=== PATIENT | male | born 1945 | race Caucasian/White ===

== ENCOUNTER 2017-08-26 21:07 | Inpatient (IN) | payer OTHER ==
[~2017-08-26] VITALS: Ht 175.3 cm; Wt 84.2 kg
[~2017-08-26 21:07] MED LIST: ALLOPURINOL100 MG PO; AMLODIPINE BESY10 MG PO; AUGMENTIN875 MG PO; BALSALAZIDE DI750 MG PO; BYSTOLIC5 MG PO; CORDARONE200 MG PO; CRESTOR5 MG PO; ELIQUIS5 MG PO; LO-DOSE ASPIRIN81 M1 PO; LOPRESSOR25 MG PO; LOPRESSOR50 MG PO; LOSARTAN POTASS25 MG PO; LOSARTAN POTASS50 MG PO; METRONIDAZOLE500 MG PO; PERCOCET 5/31 TABLET PO; PREDNISONE10 MG PO; TYLENOL PM EX-1 EACH PO; TYLENOL PM1 CAPLET PO; UBIQUINOL100 MG PO; VITAMIN B-122000 MC1 PO; VITAMIN D-32000 UNI1 PO; VITAMIN D2000 UNIT PO
[2017-08-26 21:40] LABS: HEMATOCRIT 42.5 % (38.0-50.0); HEMOGLOBIN 14.2 G/DL (12.5-16.6); MCH 29.2 PG (29.0-34.0); MCHC 33.4 G/DL (30.0-36.0); MCV 87.3 FL (86-99); PLATELET COUNT 274 K/uL (156-360); RBC DIS.WIDTH-CV 13.2 % (11.8-14.6); RBC DIS.WIDTH-SD 42.3 % (39-53); RED BLOOD COUNT 4.87 M/uL (4.00-5.50); WHITE BLOOD COUNT 11.9 K/uL (4.1-10.2)
[2017-08-26 21:48] LABS: ALBUMIN 3.9 g/dL (3.2-4.8); CHLORIDE 104 mEq/L (99-109); POTASSIUM 4.2 mEq/L (3.7-5.4); SODIUM 137 mEq/L (136-147)
[2017-08-26 21:51] LABS: GLUCOSE 107 mg/dL (70-99); TOTAL PROTEIN 7.9 g/dL (6.4-8.3)
[2017-08-26 21:53] LABS: TOTAL BILIRUBIN 0.6 mg/dL (0.0-1.0)
[2017-08-26 21:54] LABS: ALKALINE PHOSPHATASE 150 IU/L (3-129); CREATININE 1.5 mg/dL (0.6-1.3); GFR ESTIMATE (CALCULATED) 49 mL/min/ (58.99-99999)
[2017-08-26 21:55] LABS: UREA NITROGEN (BUN) 19 mg/dL (9-23)
[2017-08-26 21:56] LABS: AST (GOT) 30 IU/L (2-34)
[2017-08-26 21:57] LABS: ALT (GPT) 20 IU/L (3-49)
[2017-08-27 02:31] VITALS: BP 143/81
[2017-08-27 02:49] LABS: C-REACTIVE PROTEIN 18.9 MG/L (0-10)
[2017-08-27 04:10] VITALS: BP 131/76
[2017-08-27] MEDS ORDERED: LABETALOL HCL100 MG PO (04:13)
[2017-08-27] MEDS ORDERED: COLESTID1 GM PO (04:13)
[2017-08-27] MEDS ORDERED: LIALDA1.2 GM PO (04:15)
[2017-08-27 05:35] LABS: BASOPHIL (%) 0.4 % (0-1); EOSINOPHIL (%) 1.3 % (0-5); EOSINOPHIL COUNT 0.1 K/uL (0-0.3); HEMATOCRIT 38.4 % (38.0-50.0); HEMOGLOBIN 12.4 G/DL (12.5-16.6); IMMATURE GRANULOCYTE (%) 0.2 % (0.0-0.7); LYMPHOCYTE COUNT 0.6 K/uL (1.0-2.8); MCH 28.6 PG (29.0-34.0); MCHC 32.3 G/DL (30.0-36.0); MCV 88.5 FL (86-99); MONOCYTE (%) 4.8 % (3-12); MONOCYTE COUNT 0.5 K/uL (0-0.8); NEUTROPHIL (%) 87.3 % (45-76); NEUTROPHIL COUNT 8.2 K/uL (1.8-6.4); PLATELET COUNT 225 K/uL (156-360); RBC DIS.WIDTH-CV 13.2 % (11.8-14.6); RBC DIS.WIDTH-SD 42.9 % (39-53); RED BLOOD COUNT 4.34 M/uL (4.00-5.50); WHITE BLOOD COUNT 9.4 K/uL (4.1-10.2)
[2017-08-27 06:01] LABS: CHLORIDE 106 MEQ/L (99-109); CREATININE 1.5 MG/DL (0.6-1.3); GFR ESTIMATE (CALCULATED) 49 mL/min/ (58.99-99999); GLUCOSE 116 mg/dL (70-99); POTASSIUM 4.4 MEQ/L (3.7-5.4); SODIUM 137 MEQ/L (136-147); UREA NITROGEN (BUN) 19 mg/dL (9-23)
[2017-08-27 07:05] VITALS: BP 126/78
[2017-08-27 09:18] LABS: C DIFF TOXIN NEGATIVE (NEGATIVE)
[2017-08-27 11:43] VITALS: BP 135/76
[2017-08-27 16:27] VITALS: BP 155/92
[2017-08-27 20:11] VITALS: BP 125/75
[2017-08-28 00:22] VITALS: BP 120/66
[2017-08-28 05:39] LABS: BASOPHIL (%) 0.1 % (0-1); EOSINOPHIL (%) 0 % (0-5); HEMATOCRIT 42.9 % (38.0-50.0); HEMOGLOBIN 13.8 G/DL (12.5-16.6); IMMATURE GRANULOCYTE (%) 0.4 % (0.0-0.7); LYMPHOCYTE (%) 3.7 % (15-42); LYMPHOCYTE COUNT 0.6 K/uL (1.0-2.8); MCH 28.4 PG (29.0-34.0); MCHC 32.2 G/DL (30.0-36.0); MCV 88.3 FL (86-99); MONOCYTE (%) 1.5 % (3-12); MONOCYTE COUNT 0.2 K/uL (0-0.8); NEUTROPHIL (%) 94.3 % (45-76); NEUTROPHIL COUNT 13.9 K/uL (1.8-6.4); PLATELET COUNT 262 K/uL (156-360); RBC DIS.WIDTH-CV 13.2 % (11.8-14.6); RBC DIS.WIDTH-SD 42.4 % (39-53); RED BLOOD COUNT 4.86 M/uL (4.00-5.50); WHITE BLOOD COUNT 14.7 K/uL (4.1-10.2)
[2017-08-28 06:03] LABS: CHLORIDE 104 MEQ/L (99-109); CREATININE 1.3 MG/DL (0.6-1.3); GFR ESTIMATE (CALCULATED) 58 mL/min/ (58.99-99999); GLUCOSE 159 mg/dL (70-99); POTASSIUM 4.2 MEQ/L (3.7-5.4); SODIUM 137 MEQ/L (136-147); UREA NITROGEN (BUN) 15 mg/dL (9-23)
[2017-08-28 08:00] VITALS: BP 131/74
[2017-08-28 16:00] VITALS: BP 127/67
[2017-08-29 00:10] VITALS: BP 117/70
[2017-08-29 07:18] VITALS: BP 119/78
[2017-08-29 08:12] LABS: HEMOGLOBIN 12.9 G/DL (12.5-16.6); MCH 28.5 PG (29.0-34.0); MCHC 32.3 G/DL (30.0-36.0); MCV 88.3 FL (86-99); PLATELET COUNT 256 K/uL (156-360); RBC DIS.WIDTH-CV 13.5 % (11.8-14.6); RBC DIS.WIDTH-SD 43.7 % (39-53); RED BLOOD COUNT 4.53 M/uL (4.00-5.50); WHITE BLOOD COUNT 15.4 K/uL (4.1-10.2)
[2017-08-29 08:48] LABS: CHLORIDE 105 MEQ/L (99-109); CREATININE 1.4 MG/DL (0.6-1.3); GFR ESTIMATE (CALCULATED) 53 mL/min/ (58.99-99999); GLUCOSE 150 mg/dL (70-99); POTASSIUM 4.2 MEQ/L (3.7-5.4); SODIUM 137 MEQ/L (136-147)
[2017-08-29 08:49] LABS: UREA NITROGEN (BUN) 27 mg/dL (9-23)
[2017-08-29] MEDS ORDERED: CO Q-10300 MG PO (09:59)
[2017-08-29] MEDS ORDERED: PREDNISONE10 MG PO (10:44)
[2017-08-29] MEDS ORDERED: FLAGYL500 MG PO (10:44)
[2017-08-29] MEDS ORDERED: CIPRO500 MG PO (10:44)
== END 2017-08-29 11:41 | disposition home or self-care (01) | DRG 387 ==
LOC: EME 21:07 → 2EAST 08-27 01:09 → EDOF 08-27 01:09 → ENRESERV 08-27 01:10 → 2EAST 08-27 02:30
PROVIDERS: Hospitalist; Internal Medicine
DX: K50.00 Crohn's disease of small intestine without complications (principal); I48.0 Paroxysmal atrial fibrillation; I12.9 Hypertensive chronic kidney disease with stage 1 through stage 4 chronic kidney disease, or unspecified chronic kidney disease; N18.3 Chronic kidney disease, stage 3 (moderate); I25.10 Atherosclerotic heart disease of native coronary artery without angina pectoris; M10.9 Gout, unspecified; Z87.442 Personal history of urinary calculi; Z90.49 Acquired absence of other specified parts of digestive tract; Z86.19 Personal history of other infectious and parasitic diseases; Z79.01 Long term (current) use of anticoagulants; Z82.49 Family history of ischemic heart disease and other diseases of the circulatory system
CPT/HCPCS: 74176; 80048; 80053; 81003; 83605; 85025; 85027; 86140; 87040; 87493; 99281; 99285; J0744; J1650; J2405; J2930; J7030; S0030